=== PATIENT | male | born 1955 | race Native Hawaiian/Other Pacific Islander ===

== ENCOUNTER 2016-12-09 08:44 | Emergency (ER) | payer OTHER ==
[~2016-12-09] VITALS: Ht 182.9 cm; Wt 109.3 kg
[2016-12-09 09:46] LABS: PLATELET COUNT 201 K/uL (142-355)
[2016-12-09 11:10] VITALS: BP 156/84; TEMP 98
== END 2016-12-09 11:10 | disposition home or self-care (01) ==
LOC: ED 08:44
PROVIDERS: Emergency Medicine
DX: J20.9 Acute bronchitis, unspecified (principal); R06.09 Other forms of dyspnea
CPT/HCPCS: 36415; 82550; 83880; 84484; 85027; 87804; 99283